=== PATIENT | male | born 1995 | race Caucasian/White ===

== ENCOUNTER 2018-09-23 13:43 | Emergency (ER) | payer OTHER ==
[2018-09-23 14:58] VITALS: BP 120/76
--- NOTE | 2018-09-23 15:57 | ED ---
Skin Complaint - HPI Summary HPI Summary: 23-year-old male with past medical history of asthma who presents with rash to legs for - History of Current Complaint Chief Complaint: UCRash Time Seen by Provider: 09/23/18 15:27 Stated Complaint: RASH Hx Obtained From: Patient Pain Intensity: 3 - Allergy/Home Medications Allergies/Adverse Reactions: Allergies Allergy/AdvReac Type Severity Reaction Status Date / Time No Known Allergies Allergy Unverified 09/23/18 14:58 Home Medications: Home Medications Albuterol HFA INHALER* [Ventolin HFA Inhaler*] 1 puff INH Q4H PRN 09/23/18 [ History Confirmed 09/23/18] PMH/Surg Hx/FS Hx/Imm Hx Respiratory History: Reports: Hx Asthma - Surgical History Surgical History: None Surgery Procedure, Year, and Place: pin to rt femur, wisdom teeth extraction - Immunization History Immunizations Up to Date: Yes Infectious Disease History: No Infectious Disease History: Denies: Traveled Outside the [place] in Last 30 Days - Family History Known Family History: Positive: Non-Contributory - Social History Occupation: Employed Full-time Lives: With Family Alcohol Use: Weekly Hx Substance Use: No Substance Use Type: Reports: None Smoking Status (MU): Never Smoked Tobacco Review of Systems Constitutional: Negative Negative: Fever Positive: dysuria, frequency Positive: Rash All Other Systems Reviewed And Are Negative: Yes Physical Exam - Summary Physical Exam Summary: Constitutional: Well-developed, Well-nourished, Alert. (-) Distressed Skin: papular rash to L upper thigh 3x4 cm and lower R adomen 3x4 cm HENT: Normocephalic; Atraumatic Eyes: Conjunctiva normal Neck: Musculoskeletal ROM normal neck. Cardio: Rhythm regular, rate normal, Heart sounds normal; Intact distal pulses; Radial pulses are 2+ and symmetric. (-) Murmur Pulmonary/Chest wall: Effort normal. (-) Respiratory distress, (-) Wheezes, (-) Rales Abd: Soft, (-) tenderness, (-) Distension, (-) Guarding, (-) Rebound Musculoskeletal: (-) Edema Neuro: Alert, Oriented x3 Psych: Mood and affect Normal Vital Signs On Initial Exam: Initial Vitals Temp Pulse Resp BP Pulse Ox 98.2 F 57 18 120/76 100 09/23/18 14:42 09/23/18 14:42 09/23/18 14:42 09/23/18 14:42 09/23/18 14:42 Diagnostics - Vital Signs Vital Signs Temp Pulse Resp BP Pulse Ox 09/23/18 14:42 98.2 F 57 18 120/76 100 - Laboratory Lab Statement: Any lab studies that have been ordered have been reviewed, and results considered in the medical decision making process. Course/Dx - Course Course Of Treatment: 23-year-old male presents with rash. - Physical exam notable for small areas of folliculitis to the lower right abdomen and left upper thigh plan for treatment with mupirocin. - send STD testing (GC/Chlam, RPR, trich, HIV). - advised to f/u labs here does not want treatment at this time. - Diagnoses Provider Diagnoses: Folliculitis, STD exposure Discharge - Sign-Out/Discharge Documenting (check all that apply): Patient Departure All imaging exams completed and their final reports reviewed: No Studies - Discharge Plan Condition: Stable Disposition: HOME Prescriptions: Mupirocin 2% CREAM* [Bactroban 2% CREAM*] 1 top.lotion TOPICAL BID 10 Days #1 tube Patient Education Materials: Folliculitis (ED) Referrals: No Primary Care Phys,NOPCP [Primary Care Provider] - Additional Instructions: Your STD results should result within the next 3-7 days please call back if you do not hear from us. If you test positive you should return for treatment and your partners should be treated as well. - Billing Disposition and Condition Condition: STABLE Disposition: Home
[2018-09-23 21:50] LABS: HIV 4th Generation Negative (Negative)
--- NOTE | 2018-09-24 12:14 | UC ---
- Progress Note Progress Note: HIV neg no change michaela 09/24/18 Course/Dx - Diagnoses Provider Diagnoses: Folliculitis, STD exposure Discharge - Sign-Out/Discharge Documenting (check all that apply): Post-Discharge Follow Up All imaging exams completed and their final reports reviewed: No Studies - Discharge Plan Condition: Stable Disposition: HOME Prescriptions: Mupirocin 2% CREAM* [Bactroban 2% CREAM*] 1 top.lotion TOPICAL BID 10 Days #1 tube Patient Education Materials: Folliculitis (ED) Referrals: No Primary Care Phys,NOPCP [Primary Care Provider] - Additional Instructions: Your STD results should result within the next 3-7 days please call back if you do not hear from us. If you test positive you should return for treatment and your partners should be treated as well. - Billing Disposition and Condition Condition: STABLE Disposition: Home
[2018-09-24 13:19] LABS: Neisseria gonorrhoeae (GC) RNA Negative (Negative)
[2018-09-25 20:48] LABS: Trichomonas vaginalis SOURCE: Urine (Male Patient)
== END 2018-09-23 16:50 | disposition home or self-care (01) ==
LOC: UCEAST 13:43
DX: L73.9 Follicular disorder, unspecified (principal); Z20.2 Contact with and (suspected) exposure to infections with a predominantly sexual mode of transmission; J45.909 Unspecified asthma, uncomplicated
CPT/HCPCS: 36415; 86780; 87389; 87491; 87591; 87661; 99212; G0463